=== PATIENT | male | born 1990 | race Caucasian/White ===

== ENCOUNTER 2017-12-21 02:22 | Emergency (ER) | payer SELFPAY ==
[~2017-12-21] VITALS: Ht 170.2 cm; Wt 61.2 kg
--- NOTE | 2017-12-21 02:22 | NUR ---
PT TAKEN TO BED 4
[2017-12-21 02:25] VITALS: BP 117/66
[2017-12-21] MEDS ORDERED: PROPOFOL 200 MG/20 ML VIAL IV ONE (02:35)
--- NOTE | 2017-12-21 02:45 | NUR ---
BIB BROTHER FOR LEFT SHOULDER PAIN S/P FALLING OUT OF BED. +CMS, PT UNABLE TO RAISE LEFT ARM. SKIN INTACT, NO REDNESS OR SWELLING, +DEFORMITY.
--- NOTE | 2017-12-21 02:52 | NUR ---
X-Ray at bedside.
--- NOTE | 2017-12-21 03:01 | NUR ---
Dr. Purcell evaluating patient at bedside.
--- NOTE | 2017-12-21 03:02 | NUR ---
Propofol given per Dr Purcell. Reduction of left shoulder done per Dr Purcell. Resp therapist at bedside. See Sedation documentation for progress.
--- NOTE | 2017-12-21 03:30 | NUR ---
Pt fully awake, alert and oriented. Left arm in sling. Prema procedure well.
[2017-12-21 03:43] VITALS: BP 120/63
== END 2017-12-21 03:44 | disposition home or self-care (01) ==
LOC: MED 02:22
DX: S43.005A Unspecified dislocation of left shoulder joint, initial encounter (principal); X58.XXXA Exposure to other specified factors, initial encounter; Y93.89 Activity, other specified; Y92.89 Other specified places as the place of occurrence of the external cause; Y99.8 Other external cause status
CPT/HCPCS: 23650; 73030; 96374; 99152; 99285; J2704; Q0092

== ENCOUNTER 2017-12-28 09:53 | Emergency (ER) | payer MEDICAID ==
[~2017-12-28] VITALS: Ht 170.2 cm; Wt 59.9 kg
[2017-12-28 10:03] VITALS: BP 137/63
[2017-12-28] MEDS ORDERED: fentaNYL 0.05 MG/ML VIAL IVP ONE (10:45)
--- NOTE | 2017-12-28 11:02 | NUR ---
PATIENT PRESENTS TO ED WITH left shoulder injury . PT STATES . DENIES N/V/D; SKIN IS PINK/WARM/DRY; AAOX4 WITH EVEN AND STEADY GAIT; LUNGS CLEAR BL; HR EVEN AND REGULAR; PT DENIES ANY FEVER, CP, SOB, OR COUGH AT THIS TIME; PATIENT STATES PAIN OF 10/10 AT THIS TIME; VSS; PATIENT POSITIONED FOR COMFORT; HOB ELEVATED; BEDRAILS UP X2; BED DOWN. ER MD MADE AWARE OF PT STATUS.
--- NOTE | 2017-12-28 11:30 | NUR ---
ATTEMPTED TO REDUCE LEFT SHOULDER DISLOCATION-- PER MD, SHOULDER WOULD SLIP BACK OUT OF POCKET ---PT REPOSITIONED PRONE WITH SANDBAGS VELCROED TO LEFT FOREARM AND TAPE +2 RADIAL PULSE <3 SEC CAP REFILL
--- NOTE | 2017-12-28 12:24 | NUR ---
pt able to move lue without pain ---sand bags removed and placed in sling post reduction x-ray ordered. +2 radial pulse <3 sec cap refill
[2017-12-28 12:59] VITALS: BP 123/88
--- NOTE | 2017-12-28 13:00 | NUR ---
Patient discharged with v/s stable. Written and verbal after care instructions given and explained. Patient alert, oriented and verbalized understanding of instructions. Ambulatory with steady gait. All questions addressed prior to discharge. ID band removed. Patient advised to follow up with PMD. Rx of ibuprofen/norco given. Patient educated on indication of medication including possible reaction and side effects. Opportunity to ask questions provided and answered.
== END 2017-12-28 13:00 | disposition home or self-care (01) ==
LOC: MED 09:53
DX: S43.005A Unspecified dislocation of left shoulder joint, initial encounter (principal); W06.XXXA Fall from bed, initial encounter; Y93.89 Activity, other specified; Y92.89 Other specified places as the place of occurrence of the external cause; Y99.8 Other external cause status
CPT/HCPCS: 23650; 73020; 73030; 96374; 99284; J3010

== ENCOUNTER 2019-04-12 23:24 | Emergency (ER) | payer BC, MEDICAID, OTHER ==
[~2019-04-12] VITALS: Ht 172.7 cm; Wt 59.9 kg
[2019-04-12 23:30] VITALS: BP 135/83
--- NOTE | 2019-04-12 23:30 | NUR ---
to bed # 04 ambulatory
--- NOTE | 2019-04-13 00:12 | NUR ---
PATIENT ASSESSMENT COMPLETE. PATIENT SITTING UP IN BED, BED LOW LOCKED WITH SIDE RAIL UP ON ONE SIDE.
[2019-04-13] MEDS ORDERED: KETOROLAC 30 MG/ML VIAL IVP ONE (00:20)
--- NOTE | 2019-04-13 00:55 | NUR ---
DR CESPEDES AT BEDSIDE ATTEMPTING SHOULDER REDUCTION USING DAVOS TECHNIQUE. PATIENT TOLERATED WELL. PATIENT STATES DECREASED PAIN AFTER PROCEDURE, NO DEFORMITY NOTED. XRAY WILL CONFIRM SHOULDER IS RESET PROPERLY.
[2019-04-13 01:23] VITALS: BP 125/80
== END 2019-04-13 01:23 | disposition home or self-care (01) ==
LOC: MED 23:24
DX: S43.085A Other dislocation of left shoulder joint, initial encounter (principal); W06.XXXA Fall from bed, initial encounter; Y93.89 Activity, other specified; Y92.89 Other specified places as the place of occurrence of the external cause; Y99.8 Other external cause status
CPT/HCPCS: 23650; 73030; 96374; 99284; J1885; Q0092; 99283

== ENCOUNTER 2019-09-01 10:04 | Emergency (ER) | payer MEDICAID ==
[~2019-09-01] VITALS: Ht 170.2 cm; Wt 59.0 kg
[2019-09-01 10:06] VITALS: BP 132/97
--- NOTE | 2019-09-01 10:08 | NUR ---
29/M C/O LEFT SHOULDER PAIN/DISLOCATION LAST NIGHT. STATES THIS MIGHT BE THE 15TH TIME THAT LEFT SHOULDER WAS DISLOCATED. DENIES TRAUMA/INJURY, STATES DISLOCATION HAPPENED WHILE SLEEPING LAST NIGHT. "I MIGHT HAVE STRETCHED MY ARM OR SOMETHING AND THEN MY SHOULDER DISLOCATED AND IT WOKE ME UP FROM SLEEP". DID NOT COME DURING THE NIGHT DUE TO NO RIDE TO HOSPITAL. STATES PAIN 02/04. COVID SCREENING NEGATIVE. HX- FREQUENT SHOULDER DISLOCATIONS
--- NOTE | 2019-09-01 10:19 | NUR ---
piano technician at bedside.
--- NOTE | 2019-09-01 10:19 | NUR ---
XRAY AT BEDSIDE
[2019-09-01] MEDS ORDERED: KETOROLAC 30 MG/ML VIAL ONE (10:24)
[2019-09-01] MEDS ORDERED: MIDAZOLAM 2 MG/2 ML VIAL IVP ONE (10:35)
[2019-09-01] MEDS ORDERED: fentaNYL 0.05 MG/ML VIAL IVP ONE ×2 (10:35)
--- NOTE | 2019-09-01 10:48 | NUR ---
Dr. Wilkins is evaluating the patient at bedside.
[2019-09-01] MEDS ORDERED: PROPOFOL 200 MG/20 ML VIAL IV ONE (10:55)
--- NOTE | 2019-09-01 11:05 | NUR ---
PT CONNECTED TO BEDSIDE MONITOR AND END TIDAL CO2. RT AT BEDSIDE. PT PLACED ON 2L NC.
--- NOTE | 2019-09-01 11:07 | NUR ---
DR. LÓPEZ AT BEDSIDE ADMINISTERING ORDERED PROPOFOL VIA RT AC #20
--- NOTE | 2019-09-01 11:07 | NUR ---
Dr. Wilkins, RT and RN at bedside for reduction of left shoulder dislocation with moderate sedation.
--- NOTE | 2019-09-01 11:11 | NUR ---
LEFT SHOULDER REDUCTION PROCEDURE BY DR. RENE PANTOJA.
--- NOTE | 2019-09-01 11:17 | NUR ---
PLACED SLING ON PT
--- NOTE | 2019-09-01 11:30 | NUR ---
PT AWAKE, ALERT, DENIES PT AT THIS TIME. CONTINUED TO BE MONITORED CLOSELY BY MYSELF. ON BEDSIDE MONITOR AND ETCO2.
--- NOTE | 2019-09-01 12:12 | NUR ---
XRAY AT BEDSIDE
--- NOTE | 2019-09-01 12:29 | NUR ---
PT MADINA PEREZ [phone] WHEN READY FOR D/C Addendum: 09/01/19 at 1229 by LUPIS PT WANTCatalina PEREZ [phone] TO BE NOTIFIED WHEN READY FOR D/C
--- NOTE | 2019-09-01 12:53 | NUR ---
CALLED & LEFT VOICEMAIL FOR [facility] [phone] REGARDING PICKING UP PT.
--- NOTE | 2019-09-01 12:55 | NUR ---
PER PT, NO ONE ELSE AVAILABLE TO PICK HIM UP FROM HOSPITAL
[2019-09-01 13:09] VITALS: BP 144/87
--- NOTE | 2019-09-04 06:59 | NUR ---
KETOROLC INJ 30 MG/ML VIA MUSCLE AT 1024 09/01/[address] RENE ARNOLD.
== END 2019-09-01 13:05 | disposition home or self-care (01) ==
LOC: MED 10:04
DX: S43.005A Unspecified dislocation of left shoulder joint, initial encounter (principal); F12.90 Cannabis use, unspecified, uncomplicated; X58.XXXA Exposure to other specified factors, initial encounter; Y93.89 Activity, other specified; Y92.89 Other specified places as the place of occurrence of the external cause; Y99.8 Other external cause status
CPT/HCPCS: 23650; 73030; 99152; 99285; J1885; J2704; J3010; Q0092

== ENCOUNTER 2021-04-11 02:07 | Emergency (ER) | payer OTHER, MEDICAID ==
[~2021-04-11] VITALS: Ht 172.7 cm; Wt 61.2 kg
[2021-04-11 02:08] VITALS: BP 152/81
--- NOTE | 2021-04-11 02:11 | NUR ---
to bed ambulatory
[2021-04-11] MEDS ORDERED: KETAMINE 500 MG/5 ML VIAL IVP ONE (02:25)
[2021-04-11] MEDS ORDERED: PROPOFOL 200 MG/20 ML VIAL IV ONE (02:25)
--- NOTE | 2021-04-11 03:40 | NUR ---
PATIENT TOLERATED VERY WELL THE SEDATION INICIAL VITALS SIGNS T 97.7 R 18 HR 83 BP 145/95 SP02 100% SHOWLDER WAS RELOCATED SUCESSFUL
--- NOTE | 2021-04-11 03:42 | NUR ---
PATIENT DOING WELL POST SEDATION WE GAVE 50 MG OF KETARAL (ketamine )AND 50 MCG OF DIPRIVAN (propofol)
--- NOTE | 2021-04-11 03:44 | NUR ---
patient now able to track pupils isocoric perls size 3
--- NOTE | 2021-04-11 03:45 | NUR ---
patient able to talk follow commanded and answers question neurologically stable along with cardiac and respiratory josue vitals signs in normal limits SR 78 on monitor sp02 100 %
--- NOTE | 2021-04-11 03:47 | NUR ---
patient now fully recovered Dr is talking to him planing to send him at home
--- NOTE | 2021-04-11 03:49 | NUR ---
vitals signs now t 97.6 R 18 HR 78 SP02 100 BP 132/72 STABLE //DiCaprio RN
--- NOTE | 2021-04-11 03:53 | NUR ---
PATIENT STABLE NOW TOTALLY AWAKE VITALS SIGNS IN NORMAL LIMITS SR 78 ON MONITOR
[2021-04-11 04:55] VITALS: BP 132/72
--- NOTE | 2021-04-11 04:58 | NUR ---
PATIENT DC HOME FEELING WELL VITALS SIGNS IN NORMAL LIMITS ALL DC INSTRUCTION GAVE AND EXPLAINED SR 80 ON MONITOR SPO2 100 RA NOT COMPLAINING OF PAIN AT THIS TIME //Inocente ZAMBRANO
--- NOTE | 2021-04-14 22:32 | NUR ---
LATE ENTRY- DIPRIVAN IVP DISCONTINUED AT 0343
== END 2021-04-11 04:47 | disposition home or self-care (01) ==
LOC: MED 02:07
DX: S43.005A Unspecified dislocation of left shoulder joint, initial encounter (principal); X58.XXXA Exposure to other specified factors, initial encounter; Y92.89 Other specified places as the place of occurrence of the external cause; Y93.89 Activity, other specified; Y99.8 Other external cause status
CPT/HCPCS: 23650; 73030; 99152; 99285; J2704; Q0092

== ENCOUNTER 2021-09-30 21:43 | Emergency (ER) | payer OTHER, MEDICAID ==
[~2021-09-30] VITALS: Ht 170.2 cm; Wt 61.2 kg
[2021-09-30 22:00] VITALS: BP 134/87
--- NOTE | 2021-09-30 22:00 | NUR ---
TO BED AMBULATORY
--- NOTE | 2021-09-30 22:15 | NUR ---
PT TAKEN TO RAD
--- NOTE | 2021-09-30 22:24 | NUR ---
31 YO M BIBS W C/O LEFT SHOULDER DISLOCATION. PATIENT REPORTS THROWING A HEAVY BAG 1 HOUR AGO WHEN SHOULDER BECAME DISLOCATED. PAIN 5/10 WITH MOVEMENT PMH: DENIES MEDS: DENIES NKDA
[2021-09-30] MEDS ORDERED: PROPOFOL 200 MG/20 ML VIAL IV ONE (22:35)
[2021-09-30] MEDS ORDERED: KETAMINE 500 MG/5 ML VIAL IVP ONE (22:35)
[2021-09-30] MEDS ORDERED: IBUP-2218 PO (23:54)
--- NOTE | 2021-09-30 23:57 | NUR ---
XRAY AT BEDSIDE
[2021-10-01 00:30] VITALS: BP 135/76
== END 2021-10-01 00:30 | disposition home or self-care (01) ==
LOC: MED 21:43
DX: S43.005A Unspecified dislocation of left shoulder joint, initial encounter (principal); Z79.1 Long term (current) use of non-steroidal anti-inflammatories (NSAID); X58.XXXA Exposure to other specified factors, initial encounter; Y92.89 Other specified places as the place of occurrence of the external cause; Y93.89 Activity, other specified; Y99.8 Other external cause status
CPT/HCPCS: 23650; 73030; 99152; 99285; J2704; Q0092

== ENCOUNTER 2022-06-19 10:58 | Emergency (ER) | payer OTHER, MEDICAID ==
[~2022-06-19] VITALS: Ht 175.3 cm; Wt 70.3 kg
[~2022-06-19 10:58] MED LIST: IBUP-2218 PO
[2022-06-19 11:16] VITALS: BP 137/80
[2022-06-19 11:41] VITALS: BP 141/92
[2022-06-19] MEDS ORDERED: LIDOCAINE MPF 1% 5 ML ONE (11:47)
[2022-06-19] MEDS ORDERED: LIDOCAINE 1% 500 MG/ 50 ML VIAL INJ ONE (11:50)
[2022-06-19] MEDS ORDERED: PROPOFOL 200 MG/20 ML VIAL IV ONE ×2 (12:10→12:44)
[2022-06-19] MEDS ORDERED: MIDAZOLAM 2 MG/2 ML VIAL ONE (12:36)
[2022-06-19] MEDS ORDERED: MIDAZOLAM 2 MG/2 ML VIAL IVP ONE (12:38)
[2022-06-19] MEDS ORDERED: KETAMINE 500 MG/5 ML VIAL ONE (12:42)
[2022-06-19] MEDS ORDERED: KETAMINE 500 MG/5 ML VIAL IVP ONE (12:45)
[2022-06-19] MEDS ORDERED: SODIUM CHLORIDE FLUSH 10 ML SYR IVF SCH (13:00)
--- NOTE | 2022-06-19 13:00 | NUR ---
SHOULDER REDUCTION STARTED AT [address] SMITH.RT AND RN AT BEDSIDE. VITAL SIGNS STABLE. MONITORED V/S DURING WHOLE PROCEDURE. AT 1246 PROCEDURE ENDED. PATIENT TOLERATED WELL.@ 1250 PATIENT RETURNED TO BASELINE. STABLE V/S. ABLE TO ANSWER QUESTIONS WITHGOOD RESPIRATORY EFFORT.
--- NOTE | 2022-06-19 15:30 | NUR ---
Patient discharged with v/s stable. Written and verbal after care instructions given and explained. Patient verbalized understanding. Ambulatory with steady gait. All questions addressed prior to discharge. Advised to follow up with PMD.
== END 2022-06-19 15:30 | disposition home or self-care (01) ==
LOC: MED 10:58
DX: S43.085A Other dislocation of left shoulder joint, initial encounter (principal); X58.XXXA Exposure to other specified factors, initial encounter; Y93.89 Activity, other specified; Y92.89 Other specified places as the place of occurrence of the external cause; Y99.8 Other external cause status
CPT/HCPCS: 23650; 73020; 73030; 99285; G0500; J2001; J2250; J2704

== ENCOUNTER 2022-10-28 19:43 | Emergency (ER) | payer MEDICAID ==
[~2022-10-28] VITALS: Ht 172.7 cm; Wt 61.2 kg
[2022-10-28 19:55] VITALS: BP 131/85; PULSE 120; RESP 17; TEMP 97.7; O2SAT 98
--- NOTE | 2022-10-28 19:58 | NUR ---
TO LOBBY A/W BED AMBULATORY
--- NOTE | 2022-10-28 21:16 | NUR ---
Juliet pierre in [facility] - 10/28/22 at 2116 by GEGE PT TAKEN TO BED 6
--- NOTE | 2022-10-28 21:16 | NUR ---
PT TO BED #6
[2022-10-28] MEDS ORDERED: MORPHINE SULFATE 4 MG/ML SYR IM ONE (21:40)
[2022-10-28] MEDS ORDERED: LIDOCAINE MPF 1% 10 MG/ML VIAL INJ ONE (21:40)
--- NOTE | 2022-10-28 21:41 | NUR ---
Dr. Enamorado examining patient.
--- NOTE | 2022-10-28 21:52 | NUR ---
Dr. Enamorado at bedside
[2022-10-28] MEDS ORDERED: PROPOFOL 200 MG/20 ML VIAL IV ONE (22:20)
[2022-10-28 22:35] VITALS: O2SAT 99
--- NOTE | 2022-10-28 22:45 | NUR ---
RT's at bedside for procedure.
[2022-10-28 22:50] VITALS: O2SAT 98
--- NOTE | 2022-10-28 22:52 | NUR ---
Shoulder reduction procedure started. Pt connected to monitor and placed on 2 lpm via nc.
[2022-10-28 23:05] VITALS: O2SAT 96
--- NOTE | 2022-10-28 23:14 | NUR ---
RAD at bedside for imaging.
[2022-10-28] MEDS ORDERED: ACET-10509 PO (23:19)
[2022-10-28] MEDS ORDERED: IBUP-2213 PO (23:19)
--- NOTE | 2022-10-28 23:50 | NUR ---
Procedure ended. Pt tolerated well. Ambulated to restroom with steady gait. Breathing adequately on RA
[2022-10-29 00:15] VITALS: BP 125/73; PULSE 98; RESP 20; TEMP 207.7; O2SAT 99
--- NOTE | 2022-10-29 00:15 | NUR ---
Patient discharged with v/s stable. Written and verbal after care instructions given and explained. Patient alert, oriented and verbalized understanding of instructions. Ambulatory with steady gait. All questions addressed prior to discharge. ID band removed. Patient advised to follow up with PMD. Rx sent to preferred pharmacy. Patient educated on indication of medication including possible reaction and side effects. Opportunity to ask questions provided and answered. Pt picked up from ED by friend.
== END 2022-10-29 00:15 | disposition home or self-care (01) ==
LOC: MED 19:43
DX: S43.085A Other dislocation of left shoulder joint, initial encounter (principal); F10.129 Alcohol abuse with intoxication, unspecified; Y90.9 Presence of alcohol in blood, level not specified; W18.30XA Fall on same level, unspecified, initial encounter; Y93.89 Activity, other specified; Y92.89 Other specified places as the place of occurrence of the external cause; Y99.8 Other external cause status
CPT/HCPCS: 23650; 73030; 96372; 99285; G0500; J2001; J2270; J2704; Q0092

== ENCOUNTER 2023-06-27 09:25 | Emergency (ER) | payer MEDICAID ==
[~2023-06-27] VITALS: Ht 172.7 cm; Wt 63.5 kg
[~2023-06-27 09:25] MED LIST changes: +ACET-10509 PO; +IBUP-2213 PO
[2023-06-27 09:37] VITALS: BP 117/73; PULSE 77; RESP 19; TEMP 98.2; O2SAT 99
[2023-06-27] MEDS: PROPOFOL 200 MG/20 ML VIAL IV ONE (10:42)
[2023-06-27] MEDS ORDERED: IBUP-2213 PO (11:05)
[2023-06-27] MEDS ORDERED: ACET-503 PO (11:05)
[2023-06-27 13:34] VITALS: BP 144/90; PULSE 87; RESP 16; O2SAT 99
== END 2023-06-27 13:34 | disposition home or self-care (01) ==
LOC: MED 09:25
DX: S43.085A Other dislocation of left shoulder joint, initial encounter (principal); Z79.899 Other long term (current) drug therapy; X58.XXXA Exposure to other specified factors, initial encounter; Y93.89 Activity, other specified; Y92.89 Other specified places as the place of occurrence of the external cause; Y99.8 Other external cause status
CPT/HCPCS: 23650; 73020; 73030; 99285; G0500; J2704